=== PATIENT | male | born 1980 | race Caucasian/White ===

== ENCOUNTER 2019-12-29 03:02 | Inpatient (IN) | payer OTHER ==
[~2019-12-29] VITALS: Ht 185.4 cm; Wt 98.5 kg
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
--- NOTE | 2019-12-29 03:11 | NUR ---
LUCITA [employer] INSTRUCTOR AT BEDSIDE
[2019-12-29] MEDS ORDERED: SODIUM CHLORIDE FLUSH 10ML SYR IVF ONE (03:30)
[2019-12-29] MEDS ORDERED: SODIUM CHLORIDE 0.9% 1,000ML IVBOLUS ONE ×2 (03:30→05:00)
--- NOTE | 2019-12-29 03:40 | NUR ---
PT RESTING ON GURNEY PROVIDED WATER PER LUCITA, FRIEND AT BEDSIDE FOR SUPPORT
[2019-12-29 03:55] LABS: ALANINE AMINOTRANSFERASE 35 U/L (12-78); ALBUMIN 3.3 g/dL (3.4-5.0); ANION GAP 9 mmol/L (5-15); CALCIUM 7.9 mg/dL (8.5-10.1); CHLORIDE 108 mmol/L (98-107); CREATININE 0.73 mg/dL (0.7-1.3)
[2019-12-29 03:57] LABS: ALKALINE PHOSPHATASE 68 U/L (45-117); BILIRUBIN,TOTAL 0.3 mg/dL (0.2-1.0); TOTAL PROTEIN 6.5 g/dL (6.4-8.2)
--- NOTE | 2019-12-29 04:03 | NUR ---
FLUIDS STARTED INFUSING WITHOUT DIFFICULTY
[2019-12-29 04:26] LABS: BASOPHILS # (AUTO) 0.02 x10^3/uL (0-0.1); BASOPHILS % (AUTO) 0 % (0-1); EOSINOPHILS # (AUTO) 0.15 x10^3/uL (0-0.4); EOSINOPHILS % (AUTO) 2 % (1-7); LYMPHOCYTES # (AUTO) 2.21 x10^3/uL (1-3.4); LYMPHOCYTES % (AUTO) 23 % (22-44); MD MORPH REVIEW ONLY; MEAN CORPUSCULAR HEMOGLOBIN 23.7 pg (27.5-34.5); MEAN CORPUSCULAR HGB CONC 31.8 g/dL (33.2-36.2); MEAN PLATELET VOLUME 8.4 fL (7.4-10.4); MONOCYTES # (AUTO) 0.55 x10^3/uL (0.2-0.8); MONOCYTES % (AUTO) 6 % (2-9); NEUTROPHILS # (AUTO) 6.74 x10^3/uL (1.8-6.8); NEUTROPHILS % (AUTO) 70 % (42-75); PLATELET COUNT 225 x10^3/uL (130-400); RED BLOOD COUNT 3.32 x10^6/uL (4.38-5.82); RED CELL DISTRIBUTION WIDTH 22.2 % (9.4-14.8)
[2019-12-29 04:27] LABS: ANISOCYTOSIS 2+; MICROCYTOSIS 2+; POLYCHROMASIA 1+
[2019-12-29 04:28] LABS: <PLATELET ESTIMATE> ADEQUATE; <PLT MORPHOLOGY> NORMAL PLT MORPH; HYPOCHROMIA 1+; OVALOCYTES 1+
[2019-12-29] MEDS ORDERED: PANTOPRAZOLE 80 MG in SODIUM CHLORIDE 0.9% 50 ML IVPB ONE (04:59)
[2019-12-29] MEDS ORDERED: PANTOPRAZOLE 80 MG in SODIUM CHLORIDE 0.9% 100 ML IV SCH (04:59)
[2019-12-29] MEDS ORDERED: ACETAMINOPHEN 325 MG TABLET PO ONE (05:00)
[2019-12-29] MEDS ORDERED: ACETAMINOPHEN 650 MG/20.3 ML UDC ONE (05:01)
[2019-12-29] MEDS ORDERED: ACETAMINOPHEN 325 MG TABLET ONE (05:01)
--- NOTE | 2019-12-29 05:35 | NUR ---
BLOOD CONSENT OBTAINED AND AT BEDSIDE
--- NOTE | 2019-12-29 05:41 | NUR ---
DR FORTUNE AT BEDSIDE FOR ADMIT AT THIS TIME
[2019-12-29] MEDS: PANTOPRAZOLE 80 MG in SODIUM CHLORIDE 0.9% 100 ML IV SCH ×2 (05:55→15:38)
[2019-12-29] MEDS ORDERED: ONDANSETRON 2MG/ML, 2ML IV PRN (06:00)
[2019-12-29] MEDS ORDERED: ACETAMINOPHEN 325 MG TABLET PO PRN (06:00)
--- NOTE | 2019-12-29 06:00 | NUR ---
TASK RN: IV PLACED, PT UPDATED ON POC. AMBULATED TO BATHROOM WITH STEADY GAIT. RECONNECTED TO MONITORING, MEDICATED PER MAR. UPDATED ON POC. CALL LIGHT WITHIN REACH, FRIEND AT BS FOR SUPPORT.
[2019-12-29 07:29] LABS: INTERNATIONAL NORMALIZED RATIO 1.09 (0.93-1.1); PROTHROMBIN TIME 11.2 Seconds (9.6-11.5)
--- NOTE | 2019-12-29 07:31 | NUR ---
Lisa johnson in [facility] - 12/29/19 at 0739 by DEUCE PATIENT DIPS TO 90% OXYGEN WHEN ASLEEP, PLACED ON 2 LITERS OXYGEN
--- NOTE | 2019-12-29 07:39 | NUR ---
patient helped to bathroom, good on feet. denies pain
--- NOTE | 2019-12-29 08:42 | NUR ---
PATIENT IN BED, REPORTS NO PAIN BUT SOME ANXIETY AND DIFFICULTY RESTING, WILL ASK MD FOR SOMETHING FOR ANXIETY.
[2019-12-29] MEDS ORDERED: LORazepam 1MG TABLET ONE (08:58)
[2019-12-29] MEDS ORDERED: LORazepam 1MG TABLET PO ONE (09:00)
--- NOTE | 2019-12-29 09:03 | NUR ---
patient given ativan for anxiety as requested/ordered. patient in bed, rails up, ready to go upstairs. blood not ready yet.
--- NOTE | 2019-12-29 09:10 | NUR ---
called x 3 for report. let tech know that patient on way up and nurse to call here for report.
[2019-12-29 10:23] VITALS: BP 138/66
[2019-12-29 10:34] VITALS: BP 138/66
[2019-12-29 10:43] VITALS: BP 110/58
[2019-12-29 11:19] LABS: AMPHETAMINE SCREEN, URINE Negative (Negative); BARBITURATE SCREEN, URINE Negative (Negative); BENZODIAZEPINE SCREEN, URINE Negative (Negative); CANNABINOID SCREEN, URINE Negative (Negative); COCAINE SCREEN, URINE Negative (Negative); METHADONE SCREEN, URINE Negative (Negative); OPIATE SCREEN, URINE Positive (Negative)
[2019-12-29 11:39] VITALS: BP 128/71
[2019-12-29 13:00] VITALS: BP 130/74
[2019-12-29] MEDS: SODIUM CHLORIDE 0.9% 1,000 ML IV SCH (15:38)
[2019-12-29 19:00] VITALS: BP 117/66
[2019-12-30 01:06] VITALS: BP 126/70
[2019-12-30] MEDS: PANTOPRAZOLE 80 MG in SODIUM CHLORIDE 0.9% 100 ML IV SCH ×2 (01:41→11:55)
[2019-12-30] MEDS: SODIUM CHLORIDE 0.9% 1,000 ML IV SCH ×2 (01:41→16:00)
[2019-12-30 07:43] VITALS: BP 123/72
[2019-12-30] MEDS ORDERED: CHLORHEXIDINE 15 ML UDC ONE (12:27)
[2019-12-30] MEDS ORDERED: CHLORHEXIDINE 15 ML UDC MM ONE (13:00)
[2019-12-30] MEDS ORDERED: PROPOFOL 50 ML ONE (13:16)
[2019-12-30] MEDS ORDERED: ONDANSETRON 2MG/ML, 2ML IVPush PRN (13:30)
[2019-12-30] MEDS ORDERED: ACETAMINOPHEN 325 MG TABLET PO PRN (13:30)
[2019-12-30] MEDS ORDERED: FENTANYL PF 100 MCG/2ML IV PRN (13:30)
[2019-12-30] MEDS ORDERED: MEPERIDINE/PF 25MG/0.5ML IVPush PRN (13:30)
[2019-12-30] MEDS ORDERED: hydrALAzine 20 MG/ML, 1ML IV PRN (13:30)
[2019-12-30] MEDS ORDERED: EPHEDRINE 50 MG/ML, 1ML IVPush PRN (13:30)
[2019-12-30] MEDS ORDERED: OXYcodone 5 MG/5 ML ORAL.SOL UDC PO PRN (13:30)
[2019-12-30] MEDS ORDERED: LABETALOL 5MG/ML, 20ML IV PRN (13:30)
[2019-12-30] MEDS ORDERED: PROMETHAZINE 25 MG/ML, 1ML IVPush PRN (13:30)
[2019-12-30 14:17] VITALS: BP 127/74
[2019-12-30] MEDS ORDERED: OMEP-110 PO (14:18)
[2019-12-30 19:06] VITALS: BP 130/66
== END 2019-12-30 20:05 | disposition home or self-care (01) | DRG 811 ==
LOC: ED 06:25 → EDIP 06:52 → 5SO 09:23
PROVIDERS: ADMIT Family Medicine; ATTEND Family Medicine
PROC: 30233N1 Transfusion of Nonautologous Red Blood Cells into Peripheral Vein, Percutaneous Approach (ICD-10-PCS; principal; 2019-12-29)
PROC: 0DB98ZX Excision of Duodenum, Via Natural or Artificial Opening Endoscopic, Diagnostic (ICD-10-PCS; 2019-12-30)
DX: D62 Acute posthemorrhagic anemia (principal); K27.4 Chronic or unspecified peptic ulcer, site unspecified, with hemorrhage; Z20.828 Contact with and (suspected) exposure to other viral communicable diseases; F14.90 Cocaine use, unspecified, uncomplicated; Z91.19 Patient's noncompliance with other medical treatment and regimen
CPT/HCPCS: 36415; 36430; 80053; 80307; 85014; 85018; 85025; 85610; 85730; 86850; 86900; 86923; 87635; 88305; 93005; 96361; 96374; G0378; J2704; C9113; J7030; P9016